=== PATIENT | female | born 2000 | race Caucasian/White ===

== ENCOUNTER 2022-06-08 16:01 | Emergency (ER) | payer OTHER, SELFPAY ==
[2022-06-08 16:05] VITALS: BP 121/69; PULSE 145; RESP 18; TEMP 36.9; O2SAT 98; BMI 24.6
--- NOTE | 2022-06-08 16:15 | DI.RAD.S_ITS ---
PROCEDURE: XR CHEST 1V INDICATIONS: suspected sepsis TECHNIQUE: One view of the chest was acquired. COMPARISON: , CR, XR CHEST 2 VIEWS, 07/11/2021, 9:32. FINDINGS: Surgical changes and devices: None. Lungs and pleura: Lungs are clear. No pleural effusions or pneumothorax. Mediastinum: Mediastinal contours appear normal. Heart size is normal. Bones and chest wall: No suspicious bony lesions. Overlying soft tissues appear unremarkable. IMPRESSION: No focal infiltrates are seen. Dictated by: Kenyon Alejandra M.D. on 06/08/2022 at 15:53 Approved by: Kenyon Alejandra M.D. on 06/08/2022 at 15:53
[2022-06-08 16:29] LABS: Add Manual Diff / Slide Review NO; Basophils Absolute Auto 100 /uL (0-100); Basophils Percent Auto 0.4 % (0-2); Eosinophils Absolute Auto 100 /uL (0-450); Eosinophils Percent Auto 0.9 % (2-4); Hematocrit 40.1 % (36-46); Hemoglobin 13.7 g/dL (12.0-16.0); Lymphocytes Absolute Auto 1500 /uL (1100-4500); Lymphocytes Percent Auto 12.4 % (25-40); Mean Corpuscular HGB Conc 34.2 % (30-36); Mean Corpuscular Hemoglobin 29.4 PG (26-34); Mean Corpuscular Volume 85.9 fL (80-100); Monocytes Absolute Auto 1100 /uL (0-900); Monocytes Percent Auto 8.5 % (3-14); Neutrophils Absolute Auto 9700 /uL (1500-7000); Neutrophils Percent Auto 77.8 % (50-75); Platelet Count 333 X10^3/uL (150-400); Red Blood Cell Count 4.67 X10^6/uL (4.0-5.2); Red Cell Distribution Width 12.7 % (11.6-14.8); White Blood Cell Count 12.5 X10^3/uL (4.5-11.0)
--- NOTE | 2022-06-08 16:32 | ED.SKABFB ---
HPI - Skin/Abscess/Foreign Bdy General Chief complaint: Skin/Abscess/Foreign Body Stated complaint: possible infection or cyst on tailbone Time Seen by Provider: 06/08/22 16:20 Source: patient Mode of arrival: Ambulatory Limitations: no limitations History of Present Illness HPI narrative: 21-year-old female who is here for evaluation of a infections/painful tailbone. She states it initially started a couple days ago when she sustained an injury while she was riding on a horse. Since that time she has continued discomfort and now redness and quite a bit of pain. She went to the walk-in clinic and was sent to the emergency department. She denies any urinary or bowel changes. Has never had anything like this in the past. Related Data Previous Rx's Medication Instructions Recorded doxycycline hyclate 100 mg tablet 100 mg PO DAILY 7 days #14 tabs 06/08/22 hydrocodone 5 mg-acetaminophen 325 1 tab PO Q6H PRN pain #7 tabs 06/08/22 mg tablet hydrocodone 5 mg-acetaminophen 325 1 tab PO Q6H PRN pain #7 tabs 06/08/22 mg tablet Review of Systems Constitutional Constitutional: Reports system reviewed and no additional complaints, except as documented Gastrointestinal Gastrointestinal: Reports system reviewed and no additional complaints, except as documented Genitourinary Genitourinary: Reports system reviewed and no additional complaints, except as documented Integumentary/Breasts Skin/Breast: Reports system reviewed and no additional complaints, except as documented Neurologic Neurologic: Reports system reviewed and no additional complaints, except as documented Hematologic/Lymphatic On Anticoagulants: No Exam Initial Vital Signs Initial Vital Signs: Vital Signs Temperature 98.4 F 06/08/22 16:05 Pulse Rate 145 H 06/08/22 16:05 Respiratory Rate 18 06/08/22 16:05 Blood Pressure 121/69 06/08/22 16:05 Pulse Oximetry 98 06/08/22 16:05 Oxygen Delivery Method 06/08/22 16:05 Const General: cooperative, comfortable and No ill appearing HENMT Head: normal to inspection and normocephalic Resp Effort & Inspection: normal respiratory effort Cardio Rate: tachycardic Skin Other: Patient has an area of induration with surrounding redness at the area superior to the intergluteal cleft. There is induration under the area. Neuro General: patient alert and patient awake Procedures Abscess I/D I&D #1: Site: other (Pilonidal) Local Anesthetic: lidocaine 1% Amount of anesthesia used (mL): 8 Technique: incised with #11 blade Irrigation: No Packing used?: plain Course Orders Ordered: ED Orders 06/08/22 16:15 XR chest 1V Stat COVID19 -Nasal RAPID/Pre-Proc Stat Complete Blood Count AUTO DIFF Stat Comprehensive Metabolic Panel Stat Lactate (Lactic Acid) Stat Lipase Stat Partial Thromboplastin Time Stat Procalcitonin Stat Prothrombin Time INR Stat RT Consult Eval and Treat NOW 06/08/22 16:42 Blood Culture Stat Discontinued Medications Sodium Chloride (Normal Saline 0.9%) 1,000 mls @ 1,000 mls/hr IV BOLUS ONE Stop: 06/08/22 17:14 Last Admin: 06/08/22 16:58 Dose: 1,000 mls/hr Documented By: SARA Ceftriaxone Sodium 1,000 mg/ (Sodium Chloride) 100 mls @ 200 mls/hr IV NOW ONE Stop: 06/08/22 17:06 Last Admin: 06/08/22 17:15 Dose: 200 mls/hr Documented By: ZACH Morphine Sulfate (Morphine 4 Mg/Ml Inj) 4 mg IV NOW ONE Stop: 06/08/22 16:35 Last Admin: 06/08/22 16:50 Dose: 4 mg Documented By: SARA Vital Signs Vital signs: Vital Signs - 8 hr 06/08/22 16:05 Temperature 98.4 F Pulse Rate 145 H Respiratory Rate 18 Blood Pressure 121/69 Pulse Oximetry 98 Oxygen Delivery Method Room Air MDM - Skin/Abscess/Foreign Bdy Lab Data Attestation: I reviewed the patient's lab results. 06/08/22 16:15 06/08/22 16:15 Labs: Lab Results 06/08/22 06/08/22 06/08/22 Range/Units 16:15 16:15 16:15 WBC 12.5 H (4.5-11.0) X10^3/uL RBC 4.67 (4.0-5.2) X10^6/uL Hgb 13.7 (12.0-16.0) g/dL Hct 40.1 (36-46) % MCV 85.9 (80-100) fL MCH 29.4 (26-34) PG MCHC 34.2 (30-36) % RDW 12.7 (11.6-14.8) % Plt Count 333 (150-400) X10^3/uL Neut % (Auto) 77.8 H (50-75) % Lymph % (Auto) 12.4 L (25-40) % [place] % (Auto) 8.5 (3-14) % Eos % (Auto) 0.9 L (2-4) % Baso % (Auto) 0.4 (0-2) % Neut # (Auto) 9700 H (8796-5602) /uL Lymph # (Auto) 1500 (8853-9360) /uL [place] # (Auto) 1100 H (0-900) /uL Eos # (Auto) 100 (0-450) /uL Baso # (Auto) 100 (0-100) /uL PT 12.1 (10.1-12.7) SECONDS INR 1.1 (0.9-1.3) APTT 25 L (26-36) SECONDS Sodium 138 (137-145) mmol/L Potassium 3.6 (3.4-5.1) mmol/L Chloride 99 (98-107) mmol/L Carbon Dioxide 27 (22-32) mmol/L BUN 8 (7-17) mg/dL Creatinine 0.62 (0.52-1.04) mg/dL Estimated GFR > 60 (>60) mL/min BUN/Creatinine Ratio 12.9 (6-22) Glucose 119 H (70-100) mg/dL Lactate (0.7-2.1) mmol/L Calcium 9.0 (8.4-10.2) mg/dL Total Bilirubin 0.3 (0.2-1.3) mg/dL AST 22 (14-36) IU/L ALT 22 (<35) IU/L Alkaline Phosphatase 101 (38-126) U/L Total Protein 8.5 H (6.3-8.2) g/dL Albumin 4.6 (3.5-5.0) g/dL Globulin 3.9 (1.7-4.1) g/dL Albumin/Globulin Ratio 1.2 (1.0-2.8) Lipase 64 (23-300) U/L Procalcitonin 0.07 (<0.5) ng/mL 06/08/22 Range/Units 16:15 WBC (4.5-11.0) X10^3/uL RBC (4.0-5.2) X10^6/uL Hgb (12.0-16.0) g/dL Hct (36-46) % MCV (80-100) fL MCH (26-34) PG MCHC (30-36) % RDW (11.6-14.8) % Plt Count (150-400) X10^3/uL Neut % (Auto) (50-75) % Lymph % (Auto) (25-40) % [place] % (Auto) (3-14) % Eos % (Auto) (2-4) % Baso % (Auto) (0-2) % Neut # (Auto) (7087-9327) /uL Lymph # (Auto) (2926-2563) /uL [place] # (Auto) (0-900) /uL Eos # (Auto) (0-450) /uL Baso # (Auto) (0-100) /uL PT (10.1-12.7) SECONDS INR (0.9-1.3) APTT (26-36) SECONDS Sodium (137-145) mmol/L Potassium (3.4-5.1) mmol/L Chloride (98-107) mmol/L Carbon Dioxide (22-32) mmol/L BUN (7-17) mg/dL Creatinine (0.52-1.04) mg/dL Estimated GFR (>60) mL/min BUN/Creatinine Ratio (6-22) Glucose (70-100) mg/dL Lactate 1.1 (0.7-2.1) mmol/L Calcium (8.4-10.2) mg/dL Total Bilirubin (0.2-1.3) mg/dL AST (14-36) IU/L ALT (<35) IU/L Alkaline Phosphatase (38-126) U/L Total Protein (6.3-8.2) g/dL Albumin (3.5-5.0) g/dL Globulin (1.7-4.1) g/dL Albumin/Globulin Ratio (1.0-2.8) Lipase (23-300) U/L Procalcitonin (<0.5) ng/mL [facility] Narrative Medical decision making narrative: Bedside ultrasound does show a slight leukocytosis. Patient is tachycardic but is also in quite a bit of discomfort. Bedside ultrasound does show abscess. Who was drained as described above. Unsure if this would be a pilonidal abscess or regular abscess with cellulitis although it is in a location consistent with a pilonidal abscess. Patient was given antibiotics here in the emergency department. Was sent home with a prescription for antibiotics and also pain medication. They were given care instructions. They were given instructions to follow-up with general surgery. They expressed understanding and agreement with plan. Discharge Plan Departure Patient Disposition: Home Clinical Impression: Pilonidal abscess Instructions: DI for Pilonidal Cyst Drainage or Removal Activity Restrictions/Additional Instructions: Antibiotics were sent to the pharmacy of your choice. Please start taking them as directed. The same with pain medication. I do recommend that you follow-up with the general surgery department at the number provided below. You can contact them for follow-up appointment. Expect drainage from the area. You can change the bandage as needed. You can shower like normal. The packing does need to be removed in 48 hours. If your symptoms are not improving please return to the emergency department for further evaluation. Prescriptions: New doxycycline hyclate 100 mg tablet 100 mg PO DAILY 7 Days Qty: 14 0RF hydrocodone-acetaminophen 5-325 mg tablet 1 tab PO Q6H PRN (Reason: pain) Qty: 7 0RF hydrocodone-acetaminophen 5-325 mg tablet 1 tab PO Q6H PRN (Reason: pain) Qty: 7 0RF Referrals: Nico Loza MD [Physician] - Stand Alone Forms: Patient Portal/API
[2022-06-08 16:37] LABS: INR 1.1 (0.9-1.3); Prothrombin Time 12.1 SECONDS (10.1-12.7)
[2022-06-08 16:39] LABS: PTT Partial Thromboplastin Tim 25 SECONDS (26-36)
[2022-06-08 16:41] LABS: Lactate (Lactic Acid) 1.1 mmol/L (0.7-2.1)
[2022-06-08 16:42] LABS: Alanine Aminotransferase 22 IU/L (<35); Albumin 4.6 g/dL (3.5-5.0); Albumin Globulin Ratio 1.2 (1.0-2.8); Alkaline Phosphatase 101 U/L (38-126); Aspartate Aminotransferase 22 IU/L (14-36); BUN Creatinine Ratio 12.9 (6-22); Bilirubin Total 0.3 mg/dL (0.2-1.3); Blood Urea Nitrogen 8 mg/dL (7-17); Carbon Dioxide 27 mmol/L (22-32); Chloride 99 mmol/L (98-107); Estimated Glomerular Filt Rate > 60 mL/min (>60); Globulin 3.9 g/dL (1.7-4.1); Glucose 119 mg/dL (70-100); HEMOLYSIS < 15 (0-50); Lipase 64 U/L (23-300); Potassium 3.6 mmol/L (3.4-5.1); Sodium 138 mmol/L (137-145); Total Protein 8.5 g/dL (6.3-8.2)
[2022-06-08] MEDS: MORPHINE 4 MG/ML INJ IV (16:50)
[2022-06-08] MEDS: SODIUM CHLORIDE 0.9% 1,000 ML 1000 ML IV (16:58)
--- NOTE | 2022-06-08 16:58 | PC.NURSE ---
standby assistance for I&D. Moderate amount of puss drained from pylonidal cyst. Patient tolerated well.
[2022-06-08 16:59] LABS: Procalcitonin 0.07 ng/mL (<0.5)
[2022-06-08] MEDS: cefTRIAXone 1,000 MG in SODIUM CHLORIDE 0.9% 100 ML 200 MG IV (17:15)
[2022-06-08 18:02] VITALS: BP 103/60; PULSE 110; RESP 20; TEMP 37.2; O2SAT 100
[2022-06-08] MEDS: ONDANSETRON 4 MG ODT SL (18:15)
== END 2022-06-08 18:20 | disposition home or self-care (01) ==
PROVIDERS: Emergency Provider Emergency Medicine; PCP Physician Assistant
DX: L05.01 Pilonidal cyst with abscess (principal)
CPT/HCPCS: 36415; 71045; 80053; 83605; 83690; 84145; 85025; 85610; 85730; 87040; 96365; 96375; 99284; 99285; J0696; J2270